=== PATIENT | female | born 1950 | race Caucasian/White ===

== ENCOUNTER 2016-09-26 05:50 | Inpatient (IN) | payer OTHER, BC ==
[2016-09-15 11:29] LABS: % IMMATURE GRANULYOCYTES 0.2 % (0.0-1.1); ABSOLUTE IMMATURE GRANULOCYTES 0.01 10^3/uL (0.00-0.10); ADD DIFF? NO; ADD MORPH? NO; ADD SCAN? NO; ATYPICAL LYMPHOCYTE FLAG 10 (0-99); FRAGMENT RBC FLAG 0 (0-99); HEMATOCRIT 46.6 % (38.0-47.0); HEMOGLOBIN 15.8 g/dL (12.6-16.3); LEFT SHIFT FLG 0 (0-99); LIPEMIA HEMOLYSIS FLAG 90 (0-99); MEAN CELL HEMOGLOBIN 32.6 pg (27.9-34.1); MEAN CELL HEMOGLOBIN CONCENTR. 33.9 g/dL (32.4-36.7); MEAN CELL VOLUME 96.3 fL (81.5-99.8); MEAN PLATELET VOLUME 9.5 fL (8.7-11.7); PLATELET CLUMPS FLAG 0 (0-99); PLATELET COUNT 364 10^3/uL (150-400); RED BLOOD CELL COUNT 4.84 10^6/uL (4.18-5.33); RED CELL DISTRIBUTION WIDTH 12.5 % (11.5-15.2)
--- NOTE | 2016-09-25 19:09 | GHP ---
DATE OF ADMISSION: 09/26/2016 HISTORY: The patient is a 66-year-old female who presents with right hip pain. It has been progres sive over a long time. She has limited motion. She is limping. Has difficulties even with activit ies of daily living and has tried appropriate conservative measures. Her history is significant on the opposite side. In 2001, she underwent a total hip replacement at the [facility]. The articulat ion was [id number]. The acetabular component loosened, requiring a revision, and then even silverio tional procedures, 3 in all on the left side. On the right side, her x-rays have shown progressive arthritis through time. Her most current x-rays show severe right hip osteoarthritis, so a right to andrey hip arthroplasty is planned. PAST MEDICAL HISTORY: Remarkable for hypothyroid, for which she uses Synthroid 125 mcg daily. ALLERGIES: She has no known drug allergies. SOCIAL HISTORY: She quit smoking in 1977. SURGERIES: Include left hip x3, appendectomy, and tonsillectomy. REVIEW OF SYSTEMS: Positive from the endocrine standpoint for her hypothyroid. PHYSICAL EXAMINATION: GENERAL: The patient is a well-developed, well-nourished female in no appare nt distress. HEAD AND NECK EXAM: Normocephalic, atraumatic. CHEST: Clear. CARDIOVASCULAR: Regu lar rate and rhythm. ABDOMEN: Soft. NEUROLOGIC: She is alert and oriented x3. EXTREMITIES: Exa m of the right hip shows 100 degrees of flexion. Very limited internal and external rotation of onl y about 10 degrees. Perhaps 20 degrees of abduction. Her leg lengths look equal. Her replaced lef t hip is flexible and comfortable. X-RAYS: Show a severely arthritic right hip. There is [id number], with degenerative spurring and subchondral cysts. Leg lengths look even. Her total hip arthroplasty on the left side looks stabl e. IMPRESSION: Right hip osteoarthritis. PLAN: Right total hip arthroplasty. The benefits and risks of surgery have been reviewed with the patient. She understands that the risks include infection, damage to blood vessels or nerves, failu re or loosening of the components and the need for revision, instability of the hip such as dislocat ion, blood clot in the leg or lungs, bleeding, and possible need for transfusion. She is well aware of the rigorous nature of the rehab. She has had a pre-surgery PT consultation. We have discussed some specific concerns that she has had after problems with her opposite side. We will try to addr ess those with components most likely to succeed for her. In terms of pain med use, she has used Vi codin successfully. She has signed a consent form, and she wishes to proceed. /[id number]/MODL
[2016-09-26] MEDS ORDERED: CEFAZOLIN 2 GM/DEXTR 100 ML IV ONE (06:00)
[2016-09-26] MEDS ORDERED: ROPI/epiNEPH/KETOROLAC JOINT COCKTAIL IU ONE (06:00)
[2016-09-26] MEDS ORDERED: NS IV ONE (06:00)
[2016-09-26] MEDS ORDERED: DEXAMETHASONE 4 MG/ML VIAL IVP ONE (06:00)
[2016-09-26] MEDS ORDERED: TRANEXAMIC ACID IV ONE (06:00)
[2016-09-26] MEDS ORDERED: ACETAMINOPHEN 325 MG TAB PO ONE (06:00)
[2016-09-26] MEDS ORDERED: POVIDONE-IODINE 20 ML in SODIUM CL IRRIG SOLUTION 500 ML IRR ONE (06:00)
[2016-09-26] MEDS ORDERED: CHLORHEXIDINE GLUC HIBICLENS 118 ML BTL TP ONE (06:00)
[2016-09-26] MEDS ORDERED: FAMOTIDINE 20 MG TAB PO ONE (06:00)
[2016-09-26] MEDS ORDERED: LIDOCAINE 1% 5 ML SDV ID PRN (06:26)
[2016-09-26] MEDS ORDERED: LR 1,000 ML IV ONE (06:26)
[2016-09-26] MEDS ORDERED: CITRATE DEXTROSE SOLN 500 ML BAG ONE (07:10)
[2016-09-26] MEDS ORDERED: MIDAZOLAM 2 MG/2 ML VIAL ONE ×2 (07:10→07:11)
[2016-09-26] MEDS ORDERED: ceFAZolin 1 GM/5 ML SYR ONE (07:10)
[2016-09-26] MEDS ORDERED: PROPOFOL 200 MG/20 ML VIAL ONE ×2 (07:11)
[2016-09-26] MEDS ORDERED: BACITRACIN 50,000 UNITS/10 ML SYR IRR ONE (07:12)
[2016-09-26] MEDS ORDERED: SKIN ADHESIVE (DERMABOND) 1 EACH TP ONE (07:12)
[2016-09-26] MEDS ORDERED: epHEDrine SULFATE 10 MG/ML SYR ONE (08:26)
[2016-09-26] MEDS ORDERED: GLYCOPYRROLATE 0.2 MG/1 ML VIAL ONE (08:26)
[2016-09-26] MEDS ORDERED: POLYETHYLENE GLYCOL 3350 17 GM PKT PO PRN (09:42)
[2016-09-26] MEDS ORDERED: ONDANSETRON DISINTEGRATING 4 MG TAB PO PRN (09:42)
[2016-09-26] MEDS ORDERED: TEMAZEPAM 15 MG CAP PO PRN (09:42)
[2016-09-26] MEDS ORDERED: ONDANSETRON 4 MG/2 ML VIAL IVP PRN (09:42)
[2016-09-26] MEDS ORDERED: PHARMACY PAIN CONSULT 1 EA MISC PRN (09:42)
[2016-09-26] MEDS ORDERED: CYCLOBENZAPRINE 10 MG TAB PO PRN (09:42)
[2016-09-26] MEDS ORDERED: MAGNESIUM HYDROXIDE 30 ML UDCUP PO PRN (09:42)
[2016-09-26] MEDS ORDERED: PROMETHAZINE HCL 25 MG SUPPR PR PRN (09:42)
[2016-09-26] MEDS ORDERED: METOCLOPRAMIDE 10 MG/2 ML VIAL IVP PRN (09:42)
[2016-09-26] MEDS ORDERED: BISACODYL 10 MG SUPP PR PRN (09:42)
[2016-09-26] MEDS ORDERED: PROMETHAZINE HCL 25 MG/ML INJ IVP PRN (09:42)
[2016-09-26] MEDS ORDERED: DIPHENOXYLATE/ATROPINE LOMOTIL 1 TAB PO PRN (09:42)
[2016-09-26] MEDS ORDERED: LACTULOSE 20 GM/30 ML UDCUP PO PRN (09:42)
[2016-09-26] MEDS ORDERED: diphenhydrAMINE 25 MG CAP PO PRN (09:42)
[2016-09-26] MEDS ORDERED: OXYCODONE/APAP 5/325 TAB ONE (10:26)
[2016-09-26] MEDS: KETOROLAC 30 MG/1 ML SDV IVP PRN ×2 (11:13→17:29)
[2016-09-26] MEDS: ACETAMINOPHEN 325 MG TAB PO SCH ×3 (11:25→22:41)
--- NOTE | 2016-09-26 12:01 | GOP ---
DATE OF OPERATION: 09/26/2016 SURGEON: Agustin Contreras MD AUDIO VISUAL AIDS DIRECTOR: Pawan Dalal S.A. ANESTHESIOLOGIST: Dr. Holli Whitman. PREOPERATIVE DIAGNOSIS: Right hip osteoarthritis. POSTOPERATIVE DIAGNOSIS: Right hip osteoarthritis. PROCEDURE PERFORMED: Right total hip arthroplasty. FINDINGS: SPECIMENS: Include excised femoral head. All counts were correct. The patient was taken in stable condition to recovery room. ESTIMATED BLOOD LOSS: 25 cc. INDICATIONS: Susanne is a 66-year-old female, who presents with history, exam and x-rays consisten t with severe right hip osteoarthritis. Right total hip is planned. DESCRIPTION OF PROCEDURE: The patient was taken to the operating room. A spinal anesthetic was adm inistered in the sitting position by Dr. Whitman. She was then placed supine and rolled left side do wn on a padded [place] pegboard, and the pegs were used to support her pelvis in a stable position for a posterior approach. All bony prominences were well padded. We used an axillary roll. She di d receive IV sedation. She received tranexamic acid as well as preoperative antibiotic per routine. The right hip was thoroughly prepped and draped free in the usual fashion with chlorhexidine. I u sed a posterior approach to the hip with a gently curving incision centered on the posterior aspect of the greater trochanter. Dissection was carried down to subcutaneous tissue. I incised through t he ITB band, and carried this through the trochanteric bursa and extended into the gluteal fascia. The sciatic nerve was identified and kept posterior, protected meticulously throughout the case. Th e short external rotators were exposed. I divided and tagged the piriformis and placed another tag suture in the more distal rotators. This allowed me to open the joint capsule, and the edge of that was tagged as well with fiber wire like the rotators. I placed the pin above the acetabulum and a pin in the trochanter for leg length measurement, and did a predislocation leg length measurement. The hip was gently dislocated. I used a neck cutting guide to leave about 10 mm of calcar, and once the neck was cut, I was able to place acetabular retractors anteriorly and posteriorly. I debrided and excised labrum. I used a smaller reamer, about 48, and reamed a bit medially to deepen the soc ket until I was down to the true floor. Then, I progressively enlarged the acetabulum in 1 mm incre ments to a 51. A 52 trial was an excellent fit. I used a Regenerex cup with limited holes placed s uperiorly. This was hammered into place in 40 degrees of opening angle and about 20-25 degrees of a nteversion. I placed a single 3 cm screw to stabilize the cup. I placed a trial liner. I then dir ected my attention toward the femur. I used a femoral neck retractor. I exposed the canal using an awl, and I did progressive reaming for a taper lock complete stem. I was able to broach up to a si ze 13. A 14 was getting too tight, so I did trial reductions with the 13 broach and I had appropria te leg lengths. Irrigation was used. I placed the acetabular liner. The stem was press fit. A 14 mm taper lock complete high offset stem in appropriate anteversion, and this was a very stable fit. Again, trial reductions were carried out. I chose a -3 ceramic head, and the hip was reduced. It had excellent stability. Leg lengths were very close, perhaps a mm of lengthening. Excellent stab ility in flexion, internal rotation, and even adduction. Antibiotic irrigation was used. I drilled 2 holes in the posterior aspect of the trochanter and passed my tag sutures in the capsule as well as the rotators, and this did a nice reduction of the capsule against the posterior femur and rotato rs as well. I checked the sciatic nerve. It looked fine. The wound was dry. I did not place a dr mejía. I closed the fascia using interrupted [id number] sutures of 0 [place], subcutaneous tis jose with 2-0 Monocryl and the skin with a running 3-0 Monoderm suture that I then glued, placed Telf a and an op site. There were no complications. DRAINS: None. SUMMARY OF COMPONENTS: This is a Biomet hip system. The stem is a 14 mm taper lock complete high o ffset stem. The acetabular component is 52 mm Regenerex limited hole cup, a single screw superiorly 3 cm. The acetabular liner is E1 Maxrom liner. The head is a 32 mm Biolox -3 neck. My surgical device sales representative, Pawan Dalal was a medical necessity. /[id number]/MODL
[2016-09-26] MEDS: oxyCODONE IR 5 MG TAB PO PRN ×4 (12:50→22:41)
[2016-09-26] MEDS ORDERED: NS 500 ML IV ONE (14:30)
[2016-09-26] MEDS: ceFAZolin 2 GM/DEXTROSE 100 ML IV SCH ×2 (14:40→20:05)
[2016-09-26] MEDS ORDERED: NS 500 ML IV PRN (15:48)
[2016-09-26] MEDS: SENNOSIDES/DOCUSATE SODIUM TAB PO SCH (19:55)
[2016-09-26] MEDS: FAMOTIDINE 20 MG TAB PO SCH (19:56)
[2016-09-26] MEDS: LR 1,000 ML IV SCH (20:04)
[2016-09-26] MEDS: ASPIRIN 325 MG TAB PO SCH (20:04)
[2016-09-27] MEDS: ACETAMINOPHEN 325 MG TAB PO SCH ×2 (05:20→12:31)
[2016-09-27] MEDS: oxyCODONE IR 5 MG TAB PO PRN ×3 (05:20→12:31)
[2016-09-27] MEDS: LR 1,000 ML IV SCH (05:27)
[2016-09-27 05:28] LABS: HEMATOCRIT 28.8 % (38.0-47.0); HEMOGLOBIN 9.8 g/dL (12.6-16.3)
[2016-09-27] MEDS ORDERED: LEVOTHYROXINE 125 MCG TAB PO SCH (06:00)
--- NOTE | 2016-09-27 07:28 | SOAPPROG ---
SOAP Progress Note Assessment/Plan: Assessment: 09/27/16 POD#1 R GISEL, Hct 28, pain controlled, dressing clean, xrays fine Plan: 09/27/16 07:25 PT/OT then home, asa, oxy, home PT Objective: Vital Signs Temp Pulse Resp BP Pulse Ox 36.9 C 61 16 89/41 L 97 09/27/16 04:00 09/27/16 04:00 09/27/16 04:00 09/27/16 04:00 09/27/16 04:00 Laboratory Results 09/27/16 05:03 09/26/16 09/27/16 09/28/16 05:59 05:59 05:59 Intake Total 4260 Output Total 850 Balance 3410 ICD10 Worksheet Patient Problems: Problems Problem Status Onset Osteoarthritis of right hip Acute - ICD10 Problem Qualifiers (1) Osteoarthritis of right hip Qualifiers: Osteoarthritis type: O
[2016-09-27 07:43] VITALS: BP 91/48; PULSE 60; RESP 14; TEMP 98.6; O2SAT 96
[2016-09-27] MEDS: FAMOTIDINE 20 MG TAB PO SCH (08:57)
[2016-09-27] MEDS: SENNOSIDES/DOCUSATE SODIUM TAB PO SCH (08:57)
[2016-09-27] MEDS: ASPIRIN 325 MG TAB PO SCH (08:57)
[2016-09-27] MEDS ORDERED: MULTIVITAMINS 1 EACH TAB PO SCH (09:00)
== END 2016-09-27 12:33 | disposition home health service (06) | DRG 470 ==
LOC: F3N 05:50
PROVIDERS: ADMIT Orthopaedic Surgery; ATTEND Orthopaedic Surgery
PROC: 0SR90JZ Replacement of Right Hip Joint with Synthetic Substitute, Open Approach (ICD-10-PCS; principal; 2016-09-26 07:15)
DX: M16.11 Unilateral primary osteoarthritis, right hip (principal); E03.9 Hypothyroidism, unspecified; G43.909 Migraine, unspecified, not intractable, without status migrainosus; R01.1 Cardiac murmur, unspecified; Z96.642 Presence of left artificial hip joint
CPT/HCPCS: 97116-GP; 97161-GP; C1713; G8978-GP-CI; G8979-GP-CI; G8980-GP-CI; J0171; J0690; J1100; J1885; J2250; J2704; J2795; J7060

== ENCOUNTER → 2018-04-03 | Day surgery (SDC) | payer OTHER, BC ==
[~2018-04-03] MED LIST: BUPIVACAINE 0.5% 30 ML SDV ONE; LIDOCAINE 1% 300 MG/30 ML SDV ONE; THROMBIN (BOVINE) 5,000 UNIT VIAL TP ONE
== END | disposition home or self-care (01) ==
LOC: FIMAGING 07:26
PROVIDERS: ATTEND Internal Medicine
DX: D24.1 Benign neoplasm of right breast (principal); N60.11 Diffuse cystic mastopathy of right breast; N60.91 Unspecified benign mammary dysplasia of right breast